=== PATIENT | female | born 1995 | race Hispanic/Latino ===

== ENCOUNTER 2017-08-06 12:30 | Inpatient (IN) | payer MEDICAID ==
[~2017-08-06] VITALS: Ht 154.9 cm; Wt 121.6 kg
[~2017-08-06 12:30] MED LIST: PREN-154 PO
[2017-08-06] MEDS ORDERED: LACTATED RINGERS 1000ML 1,000 ML IV PRN (12:33)
[2017-08-06] MEDS ORDERED: OXYTOCIN 10 USP UNITS/ML 20 UNIT in LACTATED RINGERS 1000ML 1,000 ML IV SCH (12:45)
[2017-08-06] MEDS ORDERED: AMPICILLIN 2GM+NS 100ML 100 ML IV SCH (12:45)
[2017-08-06] MEDS ORDERED: AMPICILLIN 2GM+NS 100ML 100 ML IV ONE (12:48)
[2017-08-06] MEDS ORDERED: LACTATED RINGERS 1000ML 1,000 ML IV ONE (12:50)
[2017-08-06 13:00] LABS: HEMATOCRIT 35.8 % (36-48); MEAN CORPUSCULAR HEMOGLOBIN 25.8 pg (27.0-33.0); MEAN CORPUSCULAR HGB CONC 33.2 g/dL (32.0-36.0); MEAN CORPUSCULAR VOLUME 77.7 fL (80-100); PLATELET COUNT (AUTO) 234 K/uL (130-400); RED BLOOD CELL COUNT(AUTO) 4.61 MIL/uL (4.00-5.50); RED CELL DISTRIBUTION WIDTH 15.1 % (11.0-15.5); WHITE BLOOD COUNT (AUTO) 12.7 K/uL (4.8-10.8)
[2017-08-06 15:13] VITALS: BP 127/82
[2017-08-06 15:28] VITALS: BP 117/54
[2017-08-06 15:43] VITALS: BP 126/68
[2017-08-06 16:08] VITALS: BP 132/74
[2017-08-06] MEDS ORDERED: BENZOCAINE/LANOLIN/ALOE VERA 60 ML AEROSOL TP PRN (16:30)
[2017-08-06] MEDS ORDERED: DIPH,PERTUSS(ACELL),TET VAC/PF 0.5 ML VIAL IM PRN (16:30)
[2017-08-06] MEDS ORDERED: LANOLIN 30GM OINTMENT TP PRN (16:30)
[2017-08-06] MEDS ORDERED: ACETAMINOPHEN 325 MG TAB PO PRN (16:30)
[2017-08-06] MEDS ORDERED: MEASLES/MUMPS/RUBELLA VACCINE, LIVE 0.5 ML/VIAL SQ PRN (16:30)
[2017-08-06] MEDS ORDERED: OXYTOCIN 10 USP UNITS/ML ONE (17:12)
[2017-08-06] MEDS: IBUPROFEN 600 MG TABLET PO PRN ×2 (17:21→23:51)
[2017-08-06 19:15] VITALS: BP 123/81
[2017-08-06] MEDS: AMPICILLIN 1GM+NS 50ML 50 ML IV SCH (20:45)
[2017-08-06] MEDS: DOCUSATE SODIUM 100 MG CAP PO SCH (21:20)
[2017-08-06 23:52] VITALS: BP 122/74
[2017-08-07] MEDS: AMPICILLIN 1GM+NS 50ML 50 ML IV SCH ×2 (00:45→04:45)
[2017-08-07 03:45] VITALS: BP 117/60
[2017-08-07 05:17] LABS: HEMATOCRIT 31.7 % (36-48); MEAN CORPUSCULAR HEMOGLOBIN 26.9 pg (27.0-33.0); MEAN CORPUSCULAR HGB CONC 34.5 g/dL (32.0-36.0); PLATELET COUNT (AUTO) 222 K/uL (130-400); RED BLOOD CELL COUNT(AUTO) 4.07 MIL/uL (4.00-5.50); RED CELL DISTRIBUTION WIDTH 15.2 % (11.0-15.5); WHITE BLOOD COUNT (AUTO) 12.7 K/uL (4.8-10.8)
[2017-08-07 06:17] LABS: HEPATITIS Bs ANTIGEN SCREEN P Negative (Negative)
[2017-08-07 07:34] VITALS: BP 116/68
[2017-08-07] MEDS: DOCUSATE SODIUM 100 MG CAP PO SCH (08:45)
[2017-08-07] MEDS: IBUPROFEN 600 MG TABLET PO PRN (08:46)
== END 2017-08-07 10:35 | disposition home or self-care (01) | DRG 560 ==
LOC: OBSVTOIN 12:30 → LDH 12:30 → WSH 15:15
PROVIDERS: ADMIT Obstetrics & Gynecology; ATTEND Obstetrics & Gynecology
PROC: 10E0XZZ Delivery of Products of Conception, External Approach (ICD-10-PCS; principal; 2017-08-06)
PROC: 3E0234Z Introduction of Serum, Toxoid and Vaccine into Muscle, Percutaneous Approach (ICD-10-PCS; 2017-08-06)
PROC: 3E0134Z Introduction of Serum, Toxoid and Vaccine into Subcutaneous Tissue, Percutaneous Approach (ICD-10-PCS; 2017-08-06)
DX: O99.824 Streptococcus B carrier state complicating childbirth (principal); Z23 Encounter for immunization; Z3A.37 37 weeks gestation of pregnancy; Z37.0 Single live birth
CPT/HCPCS: 36415; 85027; 86592; 86850; 86900; 86901; 87340; 90715; A4351; J0290; J2590; J7120